=== PATIENT | female | born 1975 | race African-American/Black ===

== ENCOUNTER 2017-10-13 18:44 | Emergency (ER) | payer OTHER ==
--- NOTE | 2017-10-13 18:49 | PDOC ---
Rapid Medical Evaluation Time Seen by Provider: 10/13/17 18:46 Medical Evaluation: Allergies Allergy/AdvReac Type Severity Reaction Status Date / Time No Known Allergies Allergy Verified 03/15/15 08:29 I have performed a brief in-person evaluation of this patient. The patient presents with a chief complaint of: chest pain (points to epigastrum) and LUQ since last night. worse with deep inspiration. Patient has an IUD Pertinent physical exam findings: TTP of LLQ I have ordered the following: EKG, cxr, labs The patient will proceed to the ED for further evaluation. Discharge Disposition - Diagnosis Chest pain - Referrals - Patient Instructions - Post Discharge Activity
[2017-10-13 18:51] VITALS: BP 127/68; PULSE 84; TEMP 98.7; BMI 35.2
--- NOTE | 2017-10-13 19:58 | PDOC ---
Attending Attestation - [facility] HPI: 10/13/17 21:33 The patient is a 42 year old female with a significant past medical history of SVT (currently on metoprolol) who presents to the emergency department for evaluation of chest pain. The patient reports a 1 day history of left sided chest pain. She notes the chest pain is exacerbated with inspiration, palpation , and movement of her left arm. Pt reports associated back pain. Of note, the patient has a copper IUD for the last 8 years. The patient denies lower extremity swelling, prior history of blood clots, shortness of breath, headache, fevers, chills, nausea, and vomiting. Allergies: Tomato Social History: Former smoker. No reported alcohol or drug use. Surgical History: Varicose veins, 1x. - Physicial Exam PE: General Appearance: Yes: Appropriately Dressed. No: Apparent Distress, Intoxicated HEENT: positive: EOMI, [place], Normal ENT Inspection, Normal Voice, TMs Normal, Pharynx Normal. negative: Pale Conjunctivae, Photophobia, Scleral Icterus (R), Scleral Icterus (L) Neck: positive: Trachea midline, Normal Thyroid, Supple. negative: Tender, Rigid, Carotid bruit, Stridor, Lymphadenopathy (R), Lymphadenopathy (L), Thyromegaly Respiratory/Chest: positive: Lungs Clear, Normal Breath Sounds. negative: Chest Tender, Respiratory Distress, Accessory Muscle Use, Labored Respiration, RES, Crackles, Rales, Rhonchi, Stridor, Wheezing, Dullness Cardiovascular: positive: Regular Rhythm, Regular Rate, S1, S2. negative: Edema , JVD, Murmur, Bradycardia, Tachycardia Vascular Pulses: Dorsalis-Pedis (R): 2+, Doralis-Pedis (L): 2+ Gastrointestinal/Abdominal: positive: Normal Bowel Sounds, Flat, Soft. negative : Tender, Organomegaly, Pulsatile Mass, Increased Bowel Sounds, Decreased BS, Distended, Guarding, Rebound, Hernia, Hepatomegaly, Spleenomegaly Lymphatic: negative: Adenopathy, Tenderness Musculoskeletal: positive: Normal Inspection. negative: CVA Tenderness, Decreased Range of Motion Extremity: positive: Normal Capillary Refill, Normal Inspection, Normal Range of Motion, Pelvis Stable. negative: Tender, Pedal Edema, Swelling, Erythema Integumentary: positive: Normal Color, Dry, Warm. 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 negative: EOM Palsy, Facial Droop, Sensory Deficit <Faye Wright - Last Filed: 10/14/17 03:00> - Resident Resident Name: WolfgangRicki lr - ED Attending Attestation I have performed the following: I have examined & evaluated the patient, The case was reviewed & discussed with the resident, I agree w/resident's findings & plan, Exceptions are as noted - Medical Decision Making 10/14/17 19:46 Pt treated and released <Prosper Kline - Last Filed: 10/14/17 19:46> Attestations - Attestations Documentation prepared by Faye Wright, acting as medical doctor nuclear medicine for Prosper Kline DO. <Faye Wright - Last Filed: 10/14/17 03:00>
[2017-10-13] MEDS ORDERED: ACETAMINOPHEN 325 MG TABLET (FP) PO ONE (20:01)
[2017-10-13] MEDS ORDERED: ACETAMINOPHEN 325 MG TABLET (FP) ONE (20:23)
--- NOTE | 2017-10-13 21:04 | PDOC ---
History of Present Illness - General Chief Complaint: Chest Pain Stated Complaint: CHEST PAIN Time Seen by Provider: 10/13/17 18:46 History Source: Patient Exam Limitations: No Limitations - History of Present Illness Initial Comments: 10/13/17 20:59 Patient is a 42F with history of SVT (s/p adenosine 3-4 years ago currently on metoprolol) here today complaining of left sided chest pain for the past day. Patient states that her pain is worsened with palpation, inspiration and movement of her left arm. Patient reports associated back pain on the left side that is also tender to palpation. Patient denies fevers, chills, nausea, vomiting, leg swelling and prior blood clots. Patient states that she has a copper IUD for the past 8 years. Past History - Past Medical History Allergies/Adverse Reactions: Allergies Allergy/AdvReac Type Severity Reaction Status Date / Time tomato Allergy Verified 10/13/17 18:46 Home Medications: Ambulatory Orders Metoprolol Tartrate [Lopressor -] 25 mg PO BID #60 tablet 03/07/12 Cyclobenzaprine HCl 10 mg PO HS 10/13/17 Cardiac Disorders: Yes (SVT) COPD: No HTN: No Hypercholesterolemia: No - Suicide/Smoking/Psychosocial Hx Smoking Status: No Smoking History: Former smoker Have you smoked in the past 12 months: No Number of Cigarettes Smoked Daily: 0 Information on smoking cessation initiated: No Hx Alcohol Use: No Drug/Substance Use Hx: No Substance Use Type: None Review of Systems - Review of Systems Comments:: 10/13/17 21:03 GENERAL/CONSTITUTIONAL: No fever or chills. No weakness. HEAD, EYES, EARS, NOSE AND THROAT: No change in vision. No ear pain or discharge. No sore throat. CARDIOVASCULAR: +chest pain. Negative for shortness of breath RESPIRATORY: No cough, wheezing, or hemoptysis. GASTROINTESTINAL: No nausea, vomiting, diarrhea or constipation. GENITOURINARY: No dysuria, frequency, or change in urination. MUSCULOSKELETAL: No joint or muscle swelling or pain. No neck or back pain. SKIN: No rash NEUROLOGIC: No headache, vertigo, loss of consciousness, or change in strength/ sensation. ENDOCRINE: No increased thirst. No abnormal weight change HEMATOLOGIC/LYMPHATIC: No anemia, easy bleeding, or history of blood clots. ALLERGIC/IMMUNOLOGIC: No hives or skin allergy. *Physical Exam - Vital Signs Last Vital Signs Temp Pulse Resp BP Pulse Ox 98.7 F 84 18 127/68 100 10/13/17 18:48 10/13/17 18:48 10/13/17 18:48 10/13/17 18:48 10/13/17 18:48 - Physical Exam Comments: 10/13/17 21:03 GENERAL: Awake, alert, and fully oriented, in no acute distress HEAD: No signs of trauma, normocephalic, atraumatic EYES: PERRLA, EOMI, sclera anicteric, conjunctiva clear ENT: Auricles normal inspection, hearing grossly normal, nares patent, oropharynx clear without exudates. Moist mucosa NECK: Normal ROM, supple, no lymphadenopathy, JVD, or masses LUNGS: No distress, speaks full sentences, clear to auscultation bilaterally CHEST: Tender to palpation along lower left ribs, worsened with movement of arm BACK: Tender to palpation around lower scapula, worsened with movement of arm. HEART: Regular rate and rhythm, normal S1 and S2, no murmurs, rubs or gallops, peripheral pulses normal and equal bilaterally. ABDOMEN: Soft, nontender, normoactive bowel sounds. No guarding, no rebound. No masses EXTREMITIES: Normal inspection, Normal range of motion, no edema. No clubbing or cyanosis. NEUROLOGICAL: Cranial nerves II through XII grossly intact. Normal speech, normal gait, no focal sensorimotor deficits SKIN: Warm, Dry, normal turgor, no rashes or lesions noted. Heart Score/ECG Review - History History: Slightly suspicious - Electrocardiogram EKG: Normal - Age Age: </= 45 - Risk Factors Risk Factors Heart Score: Yes Hx Obesity Based on the list above the patient has:: 1-2 risk factors - Troponin Troponin: </= normal limit - Score Heart Score - Total: 1 ED Treatment Course - LABORATORY CBC & Chemistry Diagram: 10/13/17 21:25 10/13/17 21:25 - Medications Given in the ED: ED Medications Discontinued Medications Generic Name Dose Route Start Last Admin Trade Name Freq PRN Reason Stop Dose Admin Acetaminophen 650 mg 10/13/17 20:01 10/13/17 20:10 Tylenol - PO 10/13/17 20:02 650 mg ONCE ONE Administration Medical Decision Making - Medical Decision Making 10/13/17 21:04 Patient is 42F with history of SVT here today with atypical chest pain. PERC negative. Will evaluate with cardiac labs, ekg, cxr. Likely discharge home. DDx is focused on msk pain, but will rule out ACS. HEART score 1 pending trop. EKG shows normal sinus rhythm with rate of 79. No st elevations/depressions. No significant t wave abnormalities. Normal intervals and axis. 10/13/17 22:35 Laboratory Tests 10/13/17 10/13/17 10/13/17 21:25 21:25 21:25 WBC 9.7 Hgb 11.2 Plt Count 232 BUN 13 Creatinine 0.8 Troponin I < 0.02 Serum , Qual Negative CBC normal. CMP reassuring serum preg negative. Troponin undetectable. 10/13/17 22:48 CXR clear. Given return precautions. Will discharge home. *DC/Admit/Observation/Transfer Diagnosis at time of Disposition: Chest pain - Discharge Dispostion Disposition: HOME Condition at time of disposition: Good Decision to Admit order: No - Referrals Referrals: [facility] [Provider Group] - Patient Instructions Printed Discharge Instructions: DI for Atypical Chest Pain Additional Instructions: Please return if you have any new, worsening or concerning symptoms. Please follow up with your primary care physician in the next week. 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 A referral has been provided for you in your paperwork. - Post Discharge Activity
[2017-10-13 21:31] LABS: BASO % 0.5 % (0-2.0); EOS % 1.9 % (0-4.5); HEMATOCRIT 32.6 % (32.4-45.2); HEMOGLOBIN 11.2 GM/dL (10.7-15.3); LYMPH % 23.6 % (8-40); MCH 30.5 pg (25.7-33.7); MCHC 34.4 g/dl (32.0-36.0); MEAN CELL VOLUME 88.7 fl (80-96); MEAN PLT VOLUME 8.5 fl (7.5-11.1); MONO % 6.7 % (3.8-10.2); NEUT % 67.3 % (42.8-82.8); PLATELET COUNT 232 K/MM3 (134-434); RBC 3.68 M/mm3 (3.60-5.2); RDW 13.5 % (11.6-15.6); WHITE BLOOD COUNT 9.7 K/mm3 (4.0-10.0)
[2017-10-13 21:52] LABS: ALBUMIN 3.2 g/dl (3.4-5.0); ANION GAP 9 (8-16); BILIRUBIN,TOTAL 0.3 mg/dL (0.2-1.0); BLOOD UREA NITROGEN 13 mg/dL (7-18); CALCIUM 9.3 mg/dL (8.5-10.1); CHLORIDE 110 mmol/L (98-107); CO2 24 mmol/L (21-32); CREATININE 0.8 mg/dL (0.55-1.02); GLUCOSE,RANDOM 84 mg/dL (74-106); LIPASE 121 U/L (73-393); POTASSIUM 3.9 mmol/L (3.5-5.1); SGOT/AST 18 U/L (15-37); SGPT/ALT 20 U/L (12-78); SODIUM 143 mmol/L (136-145)
[2017-10-13 21:55] LABS: ALK PHOS 97 U/L (45-117); TOT PROT 6.5 g/dl (6.4-8.2)
--- NOTE | 2017-10-14 14:22 | EKG ---
Test Reason : Blood Pressure : / mmHG Vent. Rate : 079 BPM Atrial Rate : 079 BPM P-R Int : 178 ms QRS Dur : 084 ms QT Int : 374 ms P-R-T Axes : 031 029 019 degrees QTc Int : 428 ms NORMAL SINUS RHYTHM POSSIBLE LEFT ATRIAL ENLARGEMENT BORDERLINE ECG WHEN COMPARED WITH ECG OF 19-JAN-2013 09:40, NO SIGNIFICANT CHANGE WAS FOUND Confirmed by NAUN HAYDEN MD ([id number]) on 10/14/2017 2:22:24 PM Referred By: Confirmed By:NAUN HAYDEN MD
== END 2017-10-13 23:06 | disposition home or self-care (01) ==
LOC: JER 18:44
DX: R07.9 Chest pain, unspecified (principal); I49.8 Other specified cardiac arrhythmias; Z86.79 Personal history of other diseases of the circulatory system
CPT/HCPCS: 36415; 71046-TC-FY; 80053; 82550; 83690; 84484; 84703; 85025; 93005; 93010; 99282-25

== ENCOUNTER 2021-01-10 03:12 | Emergency (ER) | payer OTHER ==
[2021-01-10 03:31] VITALS: BP 137/91; PULSE 91; TEMP 98.2; BMI 39.9
[2021-01-10] MEDS ORDERED: IBUPROFEN 400 MG TABLET (FP) PO ONE ×2 (04:07→04:43)
== END 2021-01-10 05:52 | disposition home or self-care (01) ==
LOC: JER 03:12
DX: M25.531 Pain in right wrist (principal)
CPT/HCPCS: 99283-25

== ENCOUNTER 2021-10-20 08:54 | Day surgery (SDC) | payer OTHER ==
[2021-10-15 15:40] VITALS: BMI 38.9
[2021-10-20 10:33] VITALS: TEMP 97.3
[2021-10-20 10:43] VITALS: BP 113/65; PULSE 69; RESP 18
== END 2021-10-20 11:00 | disposition home or self-care (01) ==
LOC: FASU-ENDO 08:54 → MERGE 08:54 → FASU-ENDO 11:00
PROVIDERS: ATTEND Internal Medicine Gastroenterology
PROC: 0DJD8ZZ Inspection of Lower Intestinal Tract, Via Natural or Artificial Opening Endoscopic (ICD-10-PCS; principal; 2021-10-20 09:58)
DX: Z12.11 Encounter for screening for malignant neoplasm of colon (principal); K57.30 Diverticulosis of large intestine without perforation or abscess without bleeding
CPT/HCPCS: 81025

== ENCOUNTER 2023-12-16 01:56 | Emergency (ER) | payer OTHER ==
[2023-12-16 02:06] VITALS: BP 130/85; PULSE 79; RESP 18; TEMP 98.4; BMI 39.7
[2023-12-16] MEDS ORDERED: KETOROLAC TROMETHAMINE 30 MG/1 ML VIAL ONE (03:07)
[2023-12-16] MEDS: KETOROLAC TROMETHAMINE 30 MG/1 ML VIAL IM ONE (03:14)
== END 2023-12-16 05:24 | disposition home or self-care (01) ==
LOC: JER 01:56
PROC: 3E0133Z Introduction of Anti-inflammatory into Subcutaneous Tissue, Percutaneous Approach (ICD-10-PCS; principal; 2023-12-16)
DX: S46.011A Strain of muscle(s) and tendon(s) of the rotator cuff of right shoulder, initial encounter (principal); X58.XXXA Exposure to other specified factors, initial encounter
CPT/HCPCS: 93005; 93010; 99284-25

== ENCOUNTER 2024-08-30 21:41 | Emergency (ER) | payer OTHER ==
[2024-08-30 22:02] VITALS: BP 105/65; PULSE 63; RESP 20; TEMP 98.8; BMI 39.2
== END 2024-08-30 23:54 | disposition home or self-care (01) ==
LOC: JER 21:41
DX: M79.662 Pain in left lower leg (principal)
CPT/HCPCS: 93971-TC; 99284-25